=== PATIENT | female | born 1985 | race Caucasian/White ===

== ENCOUNTER 2018-01-17 18:04 | Inpatient (IN) ==
[2018-01-17] MEDS ORDERED: MEPERIDINE 50 MG/1 ML VIAL IV PRN (18:10)
[2018-01-17] MEDS ORDERED: BUTORPHANOL 2 MG/ML VIAL IV PRN (18:10)
[2018-01-17] MEDS ORDERED: ONDANSETRON 4 MG/2 ML VIAL IV PRN (18:10)
[2018-01-17] MEDS ORDERED: diphenhydrAMINE 50 MG/1 ML VIAL IV PRN ×2 (18:12)
[2018-01-17] MEDS ORDERED: ePHEDrine 50 MG/ML AMP IV PRN (18:12)
[2018-01-17] MEDS ORDERED: hydrOXYzine HCL 25 MG/1 ML VIAL IM PRN (18:12)
[2018-01-17] MEDS ORDERED: ONDANSETRON 4 MG/2 ML VIAL IV ONE (18:12)
[2018-01-17] MEDS ORDERED: LACTATED RINGERS 1,000 ML IV ONE (18:12)
[2018-01-17] MEDS ORDERED: PROMETHAZINE 25 MG/1 ML VIAL IM ONE (18:12)
[2018-01-17] MEDS ORDERED: FAMOTIDINE 20 MG/2 ML VIAL IV ONE (18:12)
[2018-01-17] MEDS ORDERED: CITRIC ACID/SODIUM CITRATE 30 ML UDCUP PO ONE (18:12)
[2018-01-17] MEDS ORDERED: fentaNYL 2 MCG/ROPIV 0.2% EPID 150 ML EPIDURAL SCH (18:30)
[2018-01-17] MEDS ORDERED: OXYTOCIN/LR 20 UNIT/1,000 ML BAG IV SCH (18:30)
[2018-01-17 18:57] LABS: Basophils # 0.1 10*3/uL (0.0-0.2); Basophils % 0.3 % (0.0-0.8); Eosinophils # 0.1 10*3/uL (0.0-0.87); Eosinophils % 0.3 % (0.00-10.9); Hematocrit 30.6 VOL% (35.7-47.0); Immature Granulocytes % 0.4 %; Immature Granulocytes Absolute 0.06 #; Lymphocytes # 2.6 10*3/uL (1.4-4.0); Lymphocytes % 18.2 % (21.3-54.2); Mean Corpuscular HGB Conc 32.7 GM/DL (32-36); Mean Corpuscular Hemoglobin 27 PG (27-34); Mean Corpuscular Volume 81.2 FL (87-102); Mean Platelet Volume 9.9 FL (9.6-12.0); Monocytes # 0.6 10*3/uL (0.11-0.8); Monocytes % 4.3 % (1.7-12.7); Neutrophils # 10.9 10*3/uL (1.4-7.4); Neutrophils % 76.5 % (38.7-73.9); Platelet Count 227 T/CUMM (130-400); Red Blood Count 3.77 MC/CUMM (3.8-5.5); Red Cell Distribution Width 13.9 % (9.3-17.3); White Blood Count 14.3 T/CUMM (4-12)
[2018-01-17] MEDS: LACTATED RINGERS 1,000 ML IV SCH ×2 (19:15→20:00)
[2018-01-18] MEDS ORDERED: miSOPROStol 200 MCG TABLET ONE (01:36)
[2018-01-18] MEDS ORDERED: METHYLERGONOVINE 0.2 MG/1 ML AMP ONE (01:36)
[2018-01-18] MEDS ORDERED: LIDOCAINE 1% 50 ML VIAL ONE (01:36)
[2018-01-18] MEDS ORDERED: RHO(D) IMMUNE GLOBULIN 300 MCG SYRINGE IM ONE (02:25)
[2018-01-18] MEDS ORDERED: ACETAMINOPHEN 325 MG TABLET PO PRN (02:25)
[2018-01-18] MEDS ORDERED: WITCH HAZEL PADS 100/JAR TOP PRN (02:25)
[2018-01-18] MEDS ORDERED: IBUPROFEN 800 MG TABLET PO PRN (02:25)
[2018-01-18] MEDS ORDERED: ONDANSETRON 4 MG/2 ML VIAL IV PRN (02:25)
[2018-01-18] MEDS ORDERED: DIPH/TET/ACEL PERT BOOSTER VACCINE 0.5 ML VIAL IM ONE (02:25)
[2018-01-18] MEDS ORDERED: MEASLES/MUMPS/RUBELLA VACCINE 0.5 ML VIAL SUBCUT ONE (02:25)
[2018-01-18] MEDS ORDERED: OXYTOCIN/LR 20 UNIT/1,000 ML BAG IV ONE (02:25)
[2018-01-18] MEDS ORDERED: BENZOCAINE 20%/MENTHOL 0.5% SPRAY 56 GM CAN TOP PRN (02:25)
[2018-01-18] MEDS ORDERED: BISACODYL 10 MG SUPP RECTAL PRN (02:25)
[2018-01-18] MEDS ORDERED: HYDROCORTISONE 2.5% RECTAL CREAM 30 GM TUBE TOP PRN (02:25)
[2018-01-18] MEDS ORDERED: oxyCODONE/ACETAMINOPHEN 5-325 MG TABLET PO PRN ×2 (02:25)
[2018-01-18] MEDS ORDERED: LANOLIN 50% CREAM 0.3 OZ TUBE TOP PRN (02:25)
[2018-01-18] MEDS ORDERED: KETOROLAC 30 MG/1 ML VIAL IV PRN (05:22)
[2018-01-18] MEDS: DOCUSATE SODIUM 100 MG CAPSULE PO SCH (09:37)
[2018-01-19] MEDS ORDERED: IBUPROFEN 100 MG/5 ML UDCUP PO PRN (07:50)
[2018-01-19 12:05] LABS: Basophils % 0.4 % (0.0-0.8); Eosinophils # 0.2 10*3/uL (0.0-0.87); Eosinophils % 2.3 % (0.00-10.9); Hemoglobin 8.1 GM/DL (12.0-16.0); Immature Granulocytes % 0.5 %; Immature Granulocytes Absolute 0.05 #; Lymphocytes # 2.9 10*3/uL (1.4-4.0); Lymphocytes % 28.4 % (21.3-54.2); Mean Corpuscular HGB Conc 32.4 GM/DL (32-36); Mean Corpuscular Hemoglobin 27 PG (27-34); Mean Corpuscular Volume 82.5 FL (87-102); Mean Platelet Volume 10.2 FL (9.6-12.0); Monocytes # 0.5 10*3/uL (0.11-0.8); Monocytes % 4.9 % (1.7-12.7); Neutrophils # 6.5 10*3/uL (1.4-7.4); Neutrophils % 63.5 % (38.7-73.9); Platelet Count 221 T/CUMM (130-400); Red Blood Count 3.03 MC/CUMM (3.8-5.5); Red Cell Distribution Width 14.1 % (9.3-17.3); White Blood Count 10.3 T/CUMM (4-12)
[2018-01-19 14:41] VITALS: BP 114/73
[2018-01-19] MEDS: DOCUSATE SODIUM 100 MG CAPSULE PO SCH (17:42)
== END 2018-01-19 15:05 | disposition home or self-care (01) | DRG 775 ==
LOC: N.LDOUT 18:04 → N.LD 18:06 → N.OB 01-18 04:55
PROVIDERS: ADMIT Obstetrics & Gynecology; ATTEND Obstetrics & Gynecology